=== PATIENT | female | born 1980 | race American Indian/Alaskan Native ===

== ENCOUNTER 2017-04-14 11:16 | Emergency (ER) | payer MEDICAID | END 2017-04-14 11:17 | disposition left against medical advice (07) | LOC: ED 11:16 | DX: R11.11 Vomiting without nausea (principal); Z53.21 Procedure and treatment not carried out due to patient leaving prior to being seen by health care provider ==

== ENCOUNTER 2017-04-15 09:15 | Emergency (ER) | payer SELFPAY ==
[2017-04-15 09:31] VITALS: BP 151/97
[2017-04-15 10:03] LABS: Basophils % (Auto) 0.6 % (0.0-1.8); Eosinophils % (Auto) 0.1 % (0.0-4.3); Hematocrit 48.5 % (30.3-42.9); Hemoglobin 16.5 gm/dl (10.1-14.3); Mean Corpuscular HGB Conc 34 % (30-34); Mean Corpuscular Hemoglobin 30 pg (28-32); Mean Corpuscular Volume 88 fl (79-97); Platelet Count 241 K/mm3 (140-440); Red Cell Distribution Width 12.9 % (13.2-15.2); White Blood Count 14.4 K/mm3 (4.5-11.0)
[2017-04-15 10:26] LABS: Albumin 5.7 g/dL (3.9-5); Albumin/Globulin Ratio 1.6 %; Bilirubin,Total 1.1 mg/dL (0.1-1.2); Calcium 9.9 mg/dL (8.4-10.2); Chloride 93.1 mmol/L (98-107); Potassium 4.3 mmol/L (3.6-5.0); Total Protein 9.3 g/dL (6.3-8.2)
== END 2017-04-15 09:54 | disposition left against medical advice (07) ==
LOC: ED 09:15
DX: R10.9 Unspecified abdominal pain (principal); Z53.21 Procedure and treatment not carried out due to patient leaving prior to being seen by health care provider
CPT/HCPCS: 36415; 80053; 83690; 85025